=== PATIENT | male | born 1955 | race Caucasian/White ===

== ENCOUNTER 2017-10-24 13:23 | Emergency (ER) | payer OTHER ==
[2017-10-24] MEDS: ADACEL/BOOSTRIX VACCINE (DIPHTH/PERTUSS/ACELL/TETANUS)0.5ML SYR (90715) IM (14:02)
[2017-10-24] MEDS: PERCOCET 5MG/325MG TAB PO (15:30)
== END 2017-10-24 15:31 | disposition home or self-care (01) ==
LOC: M ED 13:23
DX: T20.06XA Burn of unspecified degree of forehead and cheek, initial encounter (principal); T20.03XA Burn of unspecified degree of chin, initial encounter; T20.04XA Burn of unspecified degree of nose (septum), initial encounter; T21.01XA Burn of unspecified degree of chest wall, initial encounter; T23.001A Burn of unspecified degree of right hand, unspecified site, initial encounter; T23.002A Burn of unspecified degree of left hand, unspecified site, initial encounter; X12.XXXA Contact with other hot fluids, initial encounter; Y92.89 Other specified places as the place of occurrence of the external cause
CPT/HCPCS: 90715